=== PATIENT | female | born 1985 | race Caucasian/White ===

== ENCOUNTER 2020-08-06 14:32 | Emergency (ER) | payer OTHER ==
[~2020-08-06] VITALS: Wt 83.9 kg
[2020-08-06 15:19] LABS: BASO # 0.1 10*3/uL (0.0-0.1); BASO % 0.5 % (0.0-1.0); EOS # 0.2 10*3/uL (0.0-0.4); EOS % 1.5 % (1.0-4.0); HEMATOCRIT 41.5 % (37.0-47.0); LYMPH # 3.5 10*3/uL (1.3-4.4); LYMPH % 30.4 % (27.0-41.0); MEAN CELL VOLUME 94.5 fl (81.0-99.0); MEAN CORPUSCULAR HGB 30.8 pg (27.0-31.0); MEAN CORPUSCULAR HGB CONC 32.5 g/dl (33.0-37.0); MEAN PLATELET VOLUME 11.1 fl (9.6-12.3); MONO # 0.7 10*3/uL (0.1-1.0); MONO % 5.7 % (3.0-9.0); NEUT # 7.2 10*3/uL (2.3-7.9); NEUT % 61.6 % (47.0-73.0); PLATELET COUNT AUTOMATED 265 10*3/uL (130-400); RED BLOOD COUNT 4.39 10*6/uL (4.10-5.10); RED CELL DISTRI WIDTH 12.5 % (0-14.5); WHITE BLOOD COUNT 11.6 10*3/uL (4.8-10.8)
[2020-08-06 15:36] LABS: ALBUMIN 3.3 gm/dl (3.1-4.5); ALKALINE PHOSPHATASE 80 U/L (45-117); BUN 10 mg/dl (7-24); CHLORIDE 112 mmol/L (98-107); CREATININE 0.85 mg/dL (0.55-1.02); LIPASE 67 U/L (73-393); POTASSIUM 3.9 mmol/L (3.5-5.1); SGOT/AST 10 IU/L (3-35); SGPT/ALT 19 U/L (12-78); SODIUM 142 mmol/L (136-145); TOTAL PROTEIN 7.1 gm/dL (6.4-8.2)
[2020-08-06 16:00] LABS: BILIRUBIN Negative (Negative); BLOOD Negative (Negative); CLARITY Clear (Clear); COLOR Yellow (Yellow); GLUCOSE Negative (Negative); KETONE Negative (Negative); LEUKO ESTERASE Negative (Negative); NITRITE Negative (Negative); PH 6.5 (4.5-8.0); UROBILINOGEN 0.2 E.U./dl (0.0-1.0)
[2020-08-06 16:17] LABS: BACTERIA TRACE; EPITHELIAL CELLS 0-2; MUCOUS 2+; WBC 0-2 wbc/hpf (0-5)
== END 2020-08-06 21:47 | disposition home or self-care (01) ==
LOC: ED 14:32
PROVIDERS: Nurse Practitioner Family
DX: K59.00 Constipation, unspecified (principal); F17.200 Nicotine dependence, unspecified, uncomplicated; Z88.6 Allergy status to analgesic agent

== ENCOUNTER 2024-01-11 20:28 | Emergency (ER) | payer OTHER ==
[~2024-01-11] VITALS: Ht 162.5 cm; Wt 81.6 kg
[2024-01-11] MEDS ORDERED: IBUPROFEN 800 MG TAB PO ONE (20:50)
[2024-01-11] MEDS ORDERED: Motrin,Rufen800 MG PO (22:33)
[2024-01-11] MEDS ORDERED: CYCLOBENZAPRINE5 M3 PO (22:33)
[2024-01-11] MEDS ORDERED: Cyclobenzaprine Hydrochlorid 10 MG TAB PO ONE (22:45)
== END 2024-01-11 22:41 | disposition home or self-care (01) ==
LOC: ED 20:28
DX: S50.02XA Contusion of left elbow, initial encounter (principal); S20.212A Contusion of left front wall of thorax, initial encounter; Z88.5 Allergy status to narcotic agent; Z91.048 Other nonmedicinal substance allergy status; V43.62XA Car passenger injured in collision with other type car in traffic accident, initial encounter; Y93.89 Activity, other specified; Y92.488 Other paved roadways as the place of occurrence of the external cause; Y99.8 Other external cause status